=== PATIENT | female | born 1990 | race Caucasian/White ===

== ENCOUNTER 2020-10-31 21:36 | Emergency (ER) | payer OTHER ==
[~2020-10-31] VITALS: Ht 177.8 cm; Wt 81.7 kg
[2020-10-31] MEDS ORDERED: NARCAN4 M1 (22:33)
== END 2020-11-01 00:15 | disposition home or self-care (01) ==
LOC: ER 21:36
DX: T40.1X1A Poisoning by heroin, accidental (unintentional), initial encounter (principal); F17.210 Nicotine dependence, cigarettes, uncomplicated; R51.9 Headache, unspecified; Z88.0 Allergy status to penicillin
CPT/HCPCS: 71045; 99284-25